=== PATIENT | female | born 1965 | race Hispanic/Latino ===

== ENCOUNTER 2017-02-07 13:02 | Emergency (ER) | payer OTHER ==
[2017-02-07 13:19] VITALS: BMI 26.4
[2017-02-07 13:20] VITALS: BP 145/74; PULSE 80; TEMP 98.1; O2SAT 98
[2017-02-07 13:39] VITALS: RESP 20
[2017-02-07] MEDS ORDERED: Lidocaine 5% Patch TD STA (13:53)
--- NOTE | 2017-02-07 13:54 | C.PDOC ---
Time Seen by Provider: 02/07/17 13:32 Chief Complaint (Nursing): Upper Extremity Problem/Injury Past Medical History Vital Signs: Last Vital Signs Temp 98.1 F 02/07/17 13:34 Pulse 80 02/07/17 13:34 Resp 20 02/07/17 13:34 BP 145/74 02/07/17 13:34 Pulse Ox 98 02/07/17 13:34 - [facility] Procedures TETANUS TOXOID ADMINIST (05/16/13) - Social History Hx Alcohol Use: No Hx Substance Use: No - Immunization History Hx Tetanus Toxoid Vaccination: No Hx Influenza Vaccination: No Hx Pneumococcal Vaccination: No ED Course And Treatment O2 Sat by Pulse Oximetry: 98 Disposition Counseled Patient/Family Regarding: Diagnosis, Need For Followup, Rx Given - Disposition Referrals: [facility] [Outside] [facility],PMD [Other] Disposition: HOME/ ROUTINE Disposition Time: 13:53 Condition: IMPROVED Prescriptions: Cyclobenzaprine [Flexeril] 10 mg PO TID #15 tab Lidocaine 5% [Lidoderm] 1 ea TD PRN PRN #10 patch PRN Reason: Pain, Moderate (4-7) Ibuprofen [Motrin] 600 mg PO Q6 #30 tab Instructions: Muscle Spasm (ED), Cervical Sprain (ED) Forms: Work Excuse - Clinical Impression Clinical Impression: Neck pain, Spasm of muscle
--- NOTE | 2017-02-07 13:56 | C.PDOC ---
History Of Present Illness 51 yr old female presents to the ER for new onset of neck pain for the past 3 weeks. Patient states the pain has been worsening for the past few weeks. Patient states she initially woke up with some pain on the right side of the neck, states "slept funny". But for the past few days has been feeling the pain to the bilateral base of skull, right>left side of neck and right shoulder. Patient denies relief with Aleve. Patient denies new trauma, injury, chest pain , arm pain, back pain, weakness or numbness. Time Seen by Provider: 02/07/17 13:32 Chief Complaint (Nursing): Upper Extremity Problem/Injury History Per: Patient History/Exam Limitations: no limitations Onset/Duration Of Symptoms: Persistent (3 weeks) Current Symptoms Are (Timing): Still Present Past Medical History Reviewed: Historical Data, Nursing Documentation, Vital Signs Vital Signs: Last Vital Signs Temp 98.1 F 02/07/17 13:34 Pulse 80 02/07/17 13:34 Resp 20 02/07/17 13:34 BP 145/74 02/07/17 13:34 Pulse Ox 98 02/07/17 14:00 - [facility] Procedures TETANUS TOXOID ADMINIST (05/16/13) Family History: States: No Known Family Hx - Social History Hx Alcohol Use: No Hx Substance Use: No - Immunization History Hx Tetanus Toxoid Vaccination: No Hx Influenza Vaccination: No Hx Pneumococcal Vaccination: No Review Of Systems Except As Marked, All Systems Reviewed And Found Negative. Cardiovascular: Negative for: Chest Pain Musculoskeletal: Positive for: Neck Pain (Right>Left ), Shoulder Pain (Right shoulder ), Other (Pain to the bilateral base of skull. ). Negative for: Arm Pain, Back Pain Neurological: Negative for: Weakness, Numbness Physical Exam - Physical Exam Appears: Non-toxic, In Acute Distress (Mild) Skin: Warm, Dry, No Rash Head: Atraumatic, Normacephalic Neck: Supple, Other (Limited ROM due to pain with some paracervical tenderness. ) Chest: Symmetrical, No Tenderness Cardiovascular: Rhythm Regular, No Murmur Extremity: No Deformity, Other ((+) Spasm to the top of right shoulder ) Neurological/Psych: Oriented x3, Normal Speech ED Course And Treatment O2 Sat by Pulse Oximetry: 98 Medical Decision Making Medical Decision Making: PLAN: * Lidoderm TD * Motrin PO Disposition Counseled Patient/Family Regarding: Studies Performed, Diagnosis, Need For Followup, Rx Given - Disposition Referrals: [facility] [Other] [facility] [Outside] Disposition: HOME/ ROUTINE Disposition Time: 14:00 Condition: IMPROVED Prescriptions: Cyclobenzaprine [Flexeril] 10 mg PO TID #15 tab Lidocaine 5% [Lidoderm] 1 ea TD PRN PRN #10 patch PRN Reason: Pain, Moderate (4-7) Ibuprofen [Motrin] 600 mg PO Q6 #30 tab Instructions: Cervical Sprain (ED), Muscle Spasm (ED) Forms: Work Excuse - Clinical Impression Clinical Impression: Neck pain, Spasm of muscle - Scribe Statement The provider has reviewed the documentation as recorded by the Jc Rose Provider Attestation: All medical record entries made by the Jc were at my direction and personally dictated by me. I have reviewed the chart and agree that the record accurately reflects my personal performance of the history, physical exam, medical decision making, and the department course for this patient. I have also personally directed, reviewed, and agree with the discharge instructions and disposition.
[2017-02-07] MEDS ORDERED: Lidocaine 5% Patch TD ONE (14:03)
== END 2017-02-07 14:22 | disposition home or self-care (01) ==
LOC: C.ER 13:02
DX: M54.2 Cervicalgia (principal); M62.838 Other muscle spasm

== ENCOUNTER 2017-03-16 09:53 | Emergency (ER) | payer OTHER ==
[2017-03-16 09:54] VITALS: BMI 26.4
[2017-03-16 10:40] VITALS: RESP 20
[2017-03-16 12:08] LABS: BASO # 0.1 K/uL (0.0-0.2); BASO % 1.3 % (0.0-2.0); EOS # 0.2 K/uL (0.0-0.7); EOS % 2.4 % (0.0-4.0); HEMATOCRIT 41.8 % (34.0-47.0); LYMPH # 2.2 K/uL (1.0-4.3); LYMPH % 25.7 % (20.0-40.0); MEAN CELL VOLUME 95.4 fL (81.0-99.0); MEAN CORPUSCULAR HEMOGLOBIN 31.4 pg (27.0-31.0); MEAN CORPUSCULAR HGB CONC 32.9 g/dL (33.0-37.0); MEAN PLATELET VOLUME 9.3 fL (7.2-11.7); MONO # 0.5 K/uL (0.0-0.8); MONO % 5.9 % (0.0-10.0); RED CELL DISTRIBUTION WIDTH 15.5 % (11.5-14.5); WHITE BLOOD COUNT 8.7 K/uL (4.8-10.8)
[2017-03-16 12:22] LABS: RBC URINE 1 /hpf (0-3); URINE BILIRUBIN NEGATIVE (NEGATIVE); URINE BLOOD NEGATIVE (NEGATIVE); URINE COLOR Yellow (YELLOW); URINE GLUCOSE (UA) NORMAL (Normal); URINE KETONE NEGATIVE (NEGATIVE); URINE LEUKOCYTE ESTERASE NEG Leu/uL (Negative); URINE PROTEIN NEGATIVE (NEGATIVE); URINE UROBILINOGEN NORMAL mg/dL (0.2-1.0); WBC URINE 4 /hpf (0-5)
--- NOTE | 2017-03-16 12:30 | RAD ---
HISTORY: Shortness of breath COMPARISON: No prior. TECHNIQUE: Chest PA and lateral FINDINGS: LUNGS: Biapical pleural thickening with upper lobe granulomatous changes. Diffuse increased interstitial lung markings. Mild venous congestion. PLEURA: As above. CARDIOVASCULAR: Calcification at the aortic knob. OSSEOUS STRUCTURES: No significant abnormalities. VISUALIZED UPPER ABDOMEN: Normal. OTHER FINDINGS: None. IMPRESSION: Biapical pleural thickening with upper lobe granulomatous changes. Diffuse increased interstitial lung markings. Mild venous congestion.
[2017-03-16 12:32] LABS: CHLORIDE 102 mmol/L (98-107); POTASSIUM 3.9 mmol/L (3.6-5.2); SODIUM 138 mmol/L (132-148)
[2017-03-16 12:34] LABS: BILIRUBIN,TOTAL 0.1 mg/dL (0.2-1.3); CARBON DIOXIDE 28 mmol/L (22-30); GFR AFRICAN-AMERICAN > 60
[2017-03-16 12:35] LABS: ALB/GLOB RATIO 1.6 (1.0-2.1); ALKALINE PHOSPHATASE 114 U/L (38-126); ALT/SGPT 169 U/L (9-52); AST/SGOT 42 U/L (14-36); BLOOD UREA NITROGEN 10 mg/dL (7-17); CALCIUM 9.6 mg/dl (8.6-10.4); GLUCOSE,RANDOM 97 mg/dL (65-105); TOTAL PROTEIN 7.9 g/dL (6.3-8.3)
[2017-03-16 13:06] LABS: THYROID STIMULATING HORMONE 1.24 mIU/L (0.46-4.68)
--- NOTE | 2017-03-16 13:22 | C.PDOC ---
History Of Present Illness 52 year old patient, with a past medical history of hypothyroidism and psoriasis arthritis, presents to the ED complaining of right shoulder pain radiating to her neck and anterior aspect of chest since yesterday. Patient states she feels like her anterior chest is swollen. The pain is also radiating up to her face and head. She occasionally feels short of breath. Patient denies fever, chills, nausea or vomiting. Patient had similar symptoms a couple of weeks ago. She received muscle relaxants and shots which alleviated her symptoms. Time Seen by Provider: 03/16/17 10:54 Chief Complaint (Nursing): Abnormal Skin Integrity History Per: Patient History/Exam Limitations: no limitations Onset/Duration Of Symptoms: Days (yesterday) Current Symptoms Are (Timing): Still Present Location Of Injury: Right: Shoulder (radiating to neck and chest) Quality Of Symptoms: Painful, Swollen Severity: Mild Pain Scale Rating Of: 3 Recent travel outside of the [place]: No Past Medical History Reviewed: Historical Data, Nursing Documentation, Vital Signs Vital Signs: Last Vital Signs Temp 98.3 F 03/16/17 16:15 Pulse 66 03/16/17 16:15 Resp 20 03/16/17 16:15 BP 124/80 03/16/17 16:15 Pulse Ox 98 03/21/17 18:00 - Medical History PMH: Hypothyroidism - [facility] Procedures TETANUS TOXOID ADMINIST (05/16/13) Family History: States: Unknown Family Hx - Social History Hx Alcohol Use: No Hx Substance Use: No - Immunization History Hx Tetanus Toxoid Vaccination: No Hx Influenza Vaccination: No Hx Pneumococcal Vaccination: No Review Of Systems Except As Marked, All Systems Reviewed And Found Negative. Constitutional: Negative for: Fever, Chills Cardiovascular: Negative for: Chest Pain, Palpitations Respiratory: Positive for: Shortness of Breath. Negative for: Cough Gastrointestinal: Negative for: Nausea, Vomiting, Abdominal Pain Musculoskeletal: Positive for: Other (right shoulder pain radiating to neck and chest) Skin: Negative for: Rash Physical Exam - Physical Exam Appears: Non-toxic, No Acute Distress Skin: Warm, Dry Head: Atraumatic, Normacephalic Eye(s): bilateral: Normal Inspection, EOMI Oral Mucosa: Moist Neck: Normal ROM, Supple, Other (mild right side neck tenderness) Chest: Symmetrical, Tenderness (to sternum with mild swelling and right anterior upper chest wall) Cardiovascular: Rhythm Regular Respiratory: Normal Breath Sounds, Decreased Breath Sounds (mild decrease in right base), No Rales, No Rhonchi, No Wheezing Gastrointestinal/Abdominal: Soft, No Tenderness Back: Normal Inspection, No CVA Tenderness Extremity: Normal ROM, Tenderness (right trapezius: firm and tender) Neurological/Psych: Oriented x3, Normal Speech, Normal Cognition, Normal Motor, Normal Sensation Gait: Steady ED Course And Treatment - Laboratory Results Result Diagrams: 03/16/17 11:56 03/16/17 11:56 ECG: Interpreted By Me, Viewed By Me ECG Rhythm: Sinus Rhythm ECG Interpretation: Normal Rate From EC (bpm) O2 Sat by Pulse Oximetry: 98 (room air) Pulse Ox Interpretation: Normal Progress Note: Plan: EKG, Labs, Chest x-ray Medical Decision Making Medical Decision Making: pt feeling decreased pain after toradol; advised to f/u with pmd and recommend physical therapy. Disposition - Disposition Referrals: Jarrell Lewis [Staff Provider] - Disposition: HOME/ ROUTINE Disposition Time: 16:02 Condition: IMPROVED Additional Instructions: Apply warm compresses to affected area. Take ibuprofen 600 mg by mouth 3 times a day. Take muscle relaxant up to 3 times a day- makes you sleepy, no driving. or working while taking medicine. Follow up with Dr Lewis in 1-=2 days. Also recommend you get further evaluation of chest xray- show to your PMD. Prescriptions: Cyclobenzaprine [Cyclobenzaprine HCl] 10 mg PO Q8 #9 tab Instructions: Muscle Spasm (ED) Forms: Gen Discharge Inst [place], Work Excuse - Clinical Impression Clinical Impression: Muscle spasm of right shoulder, Spasm of muscle - PA / CYTOLOGY LABORATORY MANAGER / Resident Statement MD/DO has reviewed & agrees with the documentation as recorded. - Scribe Statement The provider has reviewed the documentation as recorded by the Scribe Brandi Gomez All medical record entries made by the Scribe were at my direction and personally dictated by me. I have reviewed the chart and agree that the record accurately reflects my personal performance of the history, physical exam, medical decision making, and the department course for this patient. I have also personally directed, reviewed, and agree with the discharge instructions and disposition.
[2017-03-16 16:15] VITALS: BP 124/80; PULSE 66; TEMP 98.3
--- NOTE | 2017-03-19 13:02 | CARD ---
APPROVED REPORT EKG Measurement Heart [id number] <Conclusion> Normal sinus rhythm Normal ECG
[2017-03-21 18:00] VITALS: O2SAT 98
== END 2017-03-16 16:15 | disposition home or self-care (01) ==
LOC: C.ER 09:53
DX: M62.838 Other muscle spasm (principal)
CPT/HCPCS: 71020; 80053; 81001; 84443; 84703; 85025; 85378; 96374; 99283; J1885

== ENCOUNTER 2017-04-01 14:07 | Emergency (ER) | payer OTHER ==
[2017-04-01 14:07] VITALS: BMI 26.4
[2017-04-01 14:15] VITALS: BP 128/85; PULSE 71; RESP 18; TEMP 98.5; O2SAT 98
--- NOTE | 2017-04-01 14:27 | C.PDOC ---
History Of Present Illness 52-year-old female, comes in w/ fevers, chills, body aches, and low back pain since yesterday. Patient notes that she has been experiencing dysuria and urinary frequency for the past few days. Patient states that two months ago she was treated for UTI, but meds didn't work, so she went to a different clinic for different medicine. Patient has a Hx of TI. States she has an episode of non -bloody/non-bilious vomiting last night, and this morning. Denies rashes. Time Seen by Provider: 04/01/17 14:24 Chief Complaint (Nursing): Headache History Per: Patient History/Exam Limitations: no limitations Onset/Duration Of Symptoms: Days Current Symptoms Are (Timing): Still Present Past Medical History Reviewed: Historical Data, Nursing Documentation, Vital Signs Vital Signs: Last Vital Signs Temp 98.5 F 04/01/17 14:11 Pulse 71 04/01/17 14:11 Resp 18 04/01/17 14:11 BP 128/85 04/01/17 14:11 Pulse Ox 98 04/03/17 20:55 - Medical History PMH: Hypothyroidism - [facility] Procedures TETANUS TOXOID ADMINIST (05/16/13) Family History: States: No Known Family Hx - Social History Hx Alcohol Use: No Hx Substance Use: No - Immunization History Hx Tetanus Toxoid Vaccination: No Hx Influenza Vaccination: No Hx Pneumococcal Vaccination: No Review Of Systems Constitutional: Positive for: Fever, Chills, Malaise Cardiovascular: Negative for: Chest Pain Respiratory: Negative for: Shortness of Breath Gastrointestinal: Negative for: Nausea, Vomiting Genitourinary: Positive for: Dysuria, Frequency. Negative for: Vaginal Discharge, Vaginal Bleeding Musculoskeletal: Positive for: Back Pain Skin: Negative for: Rash Neurological: Negative for: Weakness, Numbness Physical Exam - Physical Exam Appears: Non-toxic, No Acute Distress Skin: Warm, Dry Eye(s): bilateral: Normal Inspection, PERRL, EOMI Neck: Normal ROM Gastrointestinal/Abdominal: Soft, Tenderness (mild, suprapubic), No Guarding, No Rebound Back: CVA Tenderness (B/L) Extremity: Normal ROM ED Course And Treatment O2 Sat by Pulse Oximetry: 98 Disposition Counseled Patient/Family Regarding: Diagnosis, Need For Followup - Disposition Disposition: HOME/ ROUTINE Disposition Time: 14:40 Condition: GOOD Prescriptions: Amoxicillin [Amoxil 500 mg Cap] 1 cap PO TID #21 cap Instructions: Acute Pyelonephritis (ED) Forms: Work Excuse - Clinical Impression Clinical Impression: Pyelonephritis - Scribe Statement The provider has reviewed the documentation as recorded by the Betoibjarod Mcneal All medical record entries made by the Betoibjarod were at my direction and personally dictated by me. I have reviewed the chart and agree that the record accurately reflects my personal performance of the history, physical exam, medical decision making, and the department course for this patient. I have also personally directed, reviewed, and agree with the discharge instructions and disposition.
== END 2017-04-01 14:50 | disposition home or self-care (01) ==
LOC: C.ER 14:07
DX: N12 Tubulo-interstitial nephritis, not specified as acute or chronic (principal)

== ENCOUNTER 2017-06-05 14:49 | Emergency (ER) | payer OTHER ==
[2017-06-05 14:49] VITALS: BMI 27.3
[2017-06-05 15:19] VITALS: TEMP 98.3
--- NOTE | 2017-06-05 15:48 | C.PDOC ---
History Of Present Illness 52 year old female presents to ED with complaints of mouth pain on and off for one year. Patient states she has had multiple teeth removed and has been fitted for 2 different dentures, but does not wear them because they don't fit her right and cause pain. She feels as though area and left side of face gets swollen. She denies any fever, bleeding, or recent procedure. Time Seen by Provider: 06/05/17 15:33 Chief Complaint (Nursing): Dental Pain History Per: Patient History/Exam Limitations: no limitations Onset/Duration Of Symptoms: Days (1 year), Intermittent Episodes Current Symptoms Are (Timing): Still Present Quality: Positive for: "Pain" Recent travel outside of the [place]: No Additional History Per: Patient Past Medical History Reviewed: Historical Data, Nursing Documentation, Vital Signs Vital Signs: Last Vital Signs Temp 98.3 F 06/05/17 15:19 Pulse 70 06/05/17 16:12 Resp 18 06/05/17 16:12 BP 120/68 06/05/17 16:12 Pulse Ox 99 06/05/17 17:31 - Medical History PMH: Anemia, Arthritis, Hypothyroidism Denies: Chronic Kidney Disease - [facility] Procedures TETANUS TOXOID ADMINIST (05/16/13) Family History: States: Unknown Family Hx - Social History Hx Alcohol Use: No Hx Substance Use: No - Immunization History Hx Tetanus Toxoid Vaccination: No Hx Influenza Vaccination: No Hx Pneumococcal Vaccination: No Review Of Systems Except As Marked, All Systems Reviewed And Found Negative. Constitutional: Negative for: Fever, Chills ENT: Positive for: Mouth Pain. Negative for: Mouth Swelling, Throat Pain Physical Exam - Physical Exam Appears: Non-toxic, No Acute Distress Skin: Normal Color, Warm, Dry Head: Atraumatic, Normacephalic, No Swelling (no facial swelling) Eye(s): bilateral: Normal Inspection Nose: Normal Oral Mucosa: Moist Tongue: Normal Appearing Lips: Normal Appearing Teeth: Caries (4 tooth in lower mouth), Edentulous, No Dentures (no dentures in place) Gingiva: Erythema, No Ulceration, No Swelling, No Bleeding, No Abscess Throat: Normal Neck: Normal ROM, Supple Neurological/Psych: Oriented x3, Normal Speech, Normal Cognition ED Course And Treatment O2 Sat by Pulse Oximetry: 99 (RA) Pulse Ox Interpretation: Normal Medical Decision Making Medical Decision Makin52 year old female with mouth pain on and off for one year. Patient mouth has no dentures in place and 4 teeth to lower mouth that are poor with cavities. Gums pink, no swelling, no ulceration or sign of abscess. Recommend NSAID and to follow up with dentist. Disposition Counseled Patient/Family Regarding: Diagnosis, Need For Followup - Disposition Disposition: HOME/ ROUTINE Disposition Time: 15:47 Condition: STABLE Additional Instructions: Please apply benzocaine to gums or area of pain and discomfort. You may take ibuprofen for any pain you have as needed Follow up with your dentist or dental clinic for further evaluation Prescriptions: Benzocaine 20% [Orajel PM Maximum Strength] 7 gm MM Q8 #1 tube Ibuprofen [Motrin] 1 tab PO TID PRN #30 tab PRN Reason: Pain Instructions: Benzocaine (By mouth) Forms: [employer] (Maltese) - POA Present On Arrival: None - Clinical Impression Clinical Impression: Pain in gums - PA / FOOD ADVISER / Resident Statement MD/DO has reviewed & agrees with the documentation as recorded. - Scribe Statement The provider has reviewed the documentation as recorded by the Scribe Nadja Gomez All medical record entries made by the Jc were at my direction and personally dictated by me. I have reviewed the chart and agree that the record accurately reflects my personal performance of the history, physical exam, medical decision making, and the department course for this patient. I have also personally directed, reviewed, and agree with the discharge instructions and disposition.
[2017-06-05 16:12] VITALS: BP 120/68; PULSE 70; RESP 18
[2017-06-05 17:29] VITALS: O2SAT 99
== END 2017-06-05 16:13 | disposition home or self-care (01) ==
LOC: C.ER 14:49
DX: K06.8 Other specified disorders of gingiva and edentulous alveolar ridge (principal); K02.9 Dental caries, unspecified